=== PATIENT | female | born 1970 | race Caucasian/White ===

== ENCOUNTER 2018-02-08 21:41 | Observation (INO) | payer MEDICARE, SELFPAY ==
--- NOTE | 2018-02-08 22:38 | RAD ---
THREE VIEWS RIGHT ANKLE: 02/08/18 HISTORY: Trauma, fall from standing position with deformity to right ankle with associated right ankle pain. FINDINGS: There is a fracture involving the medial malleolus as well as the distal fibula. The distal fracture fragments including the talus are displaced laterally with respective to the distal tibia as well as fibula. There is a fracture involving the posterior malleolus. The distal fracture fragments are disp laced laterally by approximately 7 mm. The fracture involving the distal fibula does appear mildly co mminuted. There is subcutaneous soft tissue swelling about the ankle. IMPRESSION: 1. Trimalleolar fracture right ankle with dislocation at the tibiotalar joint secondary to the f ractures. 2. Subcutaneous soft tissue swelling. POS: GREG
[2018-02-08] MEDS ORDERED: diphenhydrAMINE 50 MG/ML VIAL ONE (22:41)
[2018-02-08 23:20] LABS: #Lymphocytes 0.8 thou/uL (1.20-3.40); #Monocytes 0.4 thou/uL (0.11-0.59); #Neutrophils 8.8 thou/uL (1.40-6.50); %Basophils 0.5 % (0.0-1.0); %Eosinophils 0.4 % (0.0-10.0); %Lymphocytes 8.2 % (21.0-51.0); %Monocytes 4.3 % (0.0-10.0); %Neutrophils 86.6 % (42.0-75.0); Hemoglobin 12.8 g/dL (12.0-16.0); Mean Corpuscular HGB CONC 33.4 g/dL (32.0-36.0); Mean Corpuscular Hemoglobin 30.1 pg (27.0-31.0); Mean Corpuscular Volume 90.2 fL (78.0-98.0); Mean Platelet Volume 7.7 fL (7.4-10.4); Platelet Count 173 thou/uL (130-400); Red Blood Cell (RBC) Count 4.26 mill/uL (4.20-5.40); White Blood Cell (WBC) Count 10.1 thou/uL (4.8-10.8)
[2018-02-08 23:41] LABS: ALT (SGPT) 18 U/L (8-55); AST (SGOT) 19 U/L (5-34); Albumin 4.4 g/dL (3.5-5.0); Alkaline Phosphatase 73 U/L (40-150); Anion Gap 13 mmol/L (10-20); BUN (Urea Nitrogen) 12 mg/dL (7.0-18.7); Bilirubin, Total 0.2 mg/dL (0.2-1.2); Calc. Creatinine Clearance 0 mL/min (70-130); Calcium 9.6 mg/dL (7.8-10.44); Carbon Dioxide 24 mmol/L (22-29); Chloride 106 mmol/L (98-107); Estimated GFR-MDRD 68; Glucose 135 mg/dL (70-105); Potassium 3.8 mmol/L (3.5-5.1); Protein, Total 7.4 g/dL (6.0-8.3); Sodium 139 mmol/L (136-145)
--- NOTE | 2018-02-08 23:54 | RAD ---
PORTABLE AP CHEST X-RAY 02/08/18 HISTORY: Preoperative evaluation. COMPARISON: 12/19/11. FINDINGS: The cardiac silhouette is magnified by projection but is at the upper limits of normal in size. Pulmo nary vasculature is within normal limits. There is accentuation of the bronchovascular markings due t o the shallow depth of inspiration and portable technique. There is mild atelectasis left lung base. No other interval change. IMPRESSION: No acute cardiopulmonary process. POS: GREG
[2018-02-09] MEDS ORDERED: Bisacodyl 10 MG SUPP PR PRN (00:50)
[2018-02-09] MEDS ORDERED: Dextrose 50% Abboject 50 ML SYRINGE SLOW IVP PRN (00:50)
[2018-02-09] MEDS ORDERED: Dextrose 5% in Water 1,000 ML IV PRN (00:50)
[2018-02-09] MEDS ORDERED: Polyethylene Glycol 3350 17 GM Packet PO PRN (00:50)
[2018-02-09 00:56] VITALS: BMI 30.1
[2018-02-09] MEDS: Acetaminophen 1,000 MG in Premix Bag 1 BAG IVPB SCH ×4 (01:41→20:51)
[2018-02-09] MEDS: Sodium Chloride 0.9% 1,000 ML IV SCH ×3 (01:41→18:26)
[2018-02-09 05:25] LABS: #Basophils 0.1 thou/uL (0.0-0.2); #Eosinphils 0.1 thou/uL (0.0-0.7); #Lymphocytes 1.9 thou/uL (1.20-3.40); #Monocytes 0.7 thou/uL (0.11-0.59); #Neutrophils 6.4 thou/uL (1.40-6.50); %Basophils 0.7 % (0.0-1.0); %Eosinophils 0.6 % (0.0-10.0); %Lymphocytes 20.8 % (21.0-51.0); %Monocytes 7.6 % (0.0-10.0); %Neutrophils 70.4 % (42.0-75.0); Hemoglobin 12.4 g/dL (12.0-16.0); Mean Corpuscular HGB CONC 33.6 g/dL (32.0-36.0); Mean Corpuscular Hemoglobin 30.3 pg (27.0-31.0); Mean Corpuscular Volume 90.5 fL (78.0-98.0); Mean Platelet Volume 7.4 fL (7.4-10.4); Platelet Count 182 thou/uL (130-400); RBC Distribution Width 11.9 % (11.5-14.5); Red Blood Cell (RBC) Count 4.08 mill/uL (4.20-5.40); White Blood Cell (WBC) Count 9.1 thou/uL (4.8-10.8)
[2018-02-09 05:52] LABS: Anion Gap 10 mmol/L (10-20); BUN (Urea Nitrogen) 12 mg/dL (7.0-18.7); Calc. Creatinine Clearance 123 mL/min (70-130); Calcium 9.3 mg/dL (7.8-10.44); Carbon Dioxide 28 mmol/L (22-29); Chloride 107 mmol/L (98-107); Estimated GFR-MDRD 74; Glucose 102 mg/dL (70-105); Phosphorus 3.2 mg/dL (2.3-4.7); Potassium 3.8 mmol/L (3.5-5.1); Sodium 141 mmol/L (136-145)
--- NOTE | 2018-02-09 06:36 | HP ---
DATE OF ADMISSION: 02/08/2018 ADMITTING PHYSICIAN: Dr. Vanessa Caldwell. CONSULTING PHYSICIAN: Dr. Hernandez, Orthopedics. HISTORY OF PRESENT ILLNESS: Ms. Pillai is a 47-year-old female with a history of Kaitlin's disease and movement disorder. She reports that she was attempting to get up out of bed to ambulate to the bathroom when her movement disorder caused her to lose her balance and fall to the ground. Her husba nd then was able to assist her to the restroom and sat her on the stool where then she again fell to the floor trying to get up, twisting her right ankle. She was subsequently transported to [facility] where a right bimalleolar ankle fracture was identified. She complains of no o ther pain. She reports only pain in her right ankle. PAST MEDICAL HISTORY: 1. St. Mary's disease. 2. High cholesterol. 3. Uterine cancer. PAST SURGICAL HISTORY: 1. Hysterectomy. 2. Hemorrhoid surgery. SOCIAL HISTORY: Tobacco; the patient is a former smoker, quit smoking 3 years ago. Alcohol, none. Drugs, none. MEDICATIONS: 1. Clonazepam 0.5 mg every bedtime. 2. Spironolactone 25 mg daily. 3. Sertraline 200 mg daily. 4. Bupropion 150 mg once daily. 5. Atorvastatin 10 mg daily. 6. Trazodone 150 mg daily. 7. Tylenol #4 times daily. 8. Multivitamin once daily. 9. Baclofen 10 mg 4 times daily. 10. Ditropan 10 mg b.i.d. 11. Phenergan 25 mg q.4h. p.r.n. ALLERGIES: No known drug allergies. LABORATORY DATA: CBC: WBC 10.1, RBC 4.26, hemoglobin 12.8, hematocrit 38.4, platelets 173. Mica Splitter ry: Sodium 139, potassium 3.8, chloride 106, carbon dioxide 24, BUN 12, creatinine 0.89, glucose 135 , calcium 9.6. DIAGNOSTIC IMAGING: Trimalleolar fracture of the right ankle with dislocation of the tibiotalar barbara nt. REVIEW OF SYSTEMS: CONSTITUTIONAL: The patient is denies fever, chills, recent weight loss or generalized malaise. HEENT: Denies otorrhea, rhinorrhea, sore throat or neck pain. CARDIOVASCULAR: Denies chest pain. Denies syncope. RESPIRATORY: Denies shortness of breath, cough or wheezing. GASTROINTESTINAL: Denies abdominal pain, nausea, vomiting, diarrhea or constipation. GENITOURINARY: Denies hematuria or dysuria. MUSCULOSKELETAL: Reports fall, reports right ankle pain, reports right ankle deformity. SKIN: Denies rash or skin changes. NEUROLOGIC: Reports past medical history of [facility]. Mary's disease and movement disorder. PSYCHIATRIC: Reports history of depression. HEME/LYMPH: Denies abnormal bleeding. PHYSICAL EXAMINATION: VITAL SIGNS: Blood pressure 131/89, pulse 93, respirations 18, temperature 98.2, O2 sat 95% on 2 lit ers O2. CONSTITUTIONAL: Well-nourished, well-developed female lying in bed in no acute distress, nontoxic ap pearing. HEENT: Atraumatic, normocephalic. Trachea midline. No posterior neck tenderness. CARDIOVASCULAR: Regular rate and rhythm. Heart sounds normal. PULMONARY/CHEST: Chest movements symmetrical, bilateral breath sounds clear. ABDOMEN: Soft, nontender, nondistended. Pelvis stable. EXTREMITIES: Right ankle with swelling and ecchymosis. Neurovascularly intact all extremities, 2+ p ulses intact all extremities. SKIN: Warm and dry, normal in color. BACK: Normal inspection and range of motion. NEUROLOGIC: GCS 15. Awake, alert and oriented x3. ASSESSMENT AND PLAN: 1. Status post ground level fall. 2. Right trimalleolar ankle fracture. 3. History of [facility]. Mary's disease. 4. Acute traumatic pain. PLAN: 1. Admit to surgical floor. 2. Consult to Dr. Hernandez who plans to take patient to the OR tomorrow. 3. N.p.o. after midnight, IV fluid. 4. IV analgesia. 5. Splint to be placed by ER physician. 6. Pepcid for gastritis prophylaxis. 7. SCDs for DVT prophylaxis. 8. PT, OT consult with orthopedic restrictions postoperatively. This patient will be reviewed with Dr. Caldwell at the conclusion of this dictation.
[2018-02-09] MEDS ORDERED: CEFAZOLIN/Water 2 GM/20 ML SYRINGE SLOW IVP SCH (08:00)
--- NOTE | 2018-02-09 08:17 | CON ---
DATE OF CONSULTATION: 02/09/2018 REQUESTING PHYSICIAN: Dr. Vanessa Caldwell HISTORY OF PRESENT ILLNESS: Ms. Pillai is examined in her [address] room with at [facility]. She is a 47-year-old lady with a history of Elliott's disease and with severe movement disord er. She reports that on 02/08/2018 while attempting to get out of bed to ambulate she lost her poonam ce and fell sustaining a twisting injury to the right lower extremity. Her assisted her up t o the bathroom and then she had a second fall. Upon transfer to [facility], x-rays were obtained adryan t showed a displaced fracture of the right ankle with bimalleolar fracture present. She reports a hi story of multiple falls. PAST MEDICAL HISTORY: Remarkable for Kaitlin's disease, history of uterine cancer, severe depress ion, high cholesterol. PAST SURGICAL HISTORY: Includes tubal ligation with subsequent hysterectomy secondary to uterine can cer, hemorrhoid surgery, as well as nasal fracture surgery. MEDICATIONS: Clonazepam, spironolactone, sertraline, bupropion, atorvastatin, trazodone, Tylenol #4, baclofen, Ditropan, Phenergan, multivitamin. ALLERGIES: None known. SOCIAL HISTORY: She is a prior smoker; however, quit a few years ago. She denies alcohol or drug us e. FAMILY HISTORY: Noncontributory. REVIEW OF SYSTEMS: Denies recent fevers, chills or sweats. Denies chest pain or shortness of breath . Denies numbness or tingling in the lower extremities. PHYSICAL EXAMINATION: VITAL SIGNS: The patient is found to have a temperature of 97.9, heart rate of 77, respiratory rate of 20, and blood pressure 148/79. GENERAL: The patient is examined in her hospital bed. 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 HEENT: Atraumatic, normocephalic. NECK: Supple and nontender. HEART: Regular rate and rhythm without murmur. LUNGS: Clear to auscultation bilaterally with excellent breath sounds. CHEST: Chest wall is nontender. ABDOMEN: Soft and nontender with normal bowel sounds. PELVIS: Stable to compression with no pain. EXTREMITIES: Remarkable for bilateral upper extremities that are atraumatic. A left lower extremity that is also atraumatic at the hip, knee and ankle. She is moving her ankle and toes normally. The right lower extremity is remarkable for a short leg splint that is in place. She is able to move he r toes and has intact subjective sensation over the dorsal and plantar surface of the foot. She has excellent capillary refill. The knee and hip are atraumatic. X-ray of right ankle from the emergency room is remarkable for a bimalleolar ankle fracture with a ve ry small posterior malleolar segment that would technically make this a trimalleolar fracture; howeve r, only the medial and lateral malleolar fractures are in need of stabilization. LABORATORY: White count of 10, hematocrit of 38.4, 173,000 platelets. ASSESSMENT: A 47-year-old lady with Elliott's disease, now status post ground level fall sustaini ng an ankle fracture. PLAN: At this time, the patient is admitted to Trauma Service. She is currently n.p.o. We will pro verona to the operating room for open reduction internal fixation late this morning or early afternoon. Postoperatively, the patient will require nonweightbearing instructions and physical therapy latonia edwards. Today we discussed risks and benefits of surgery. Risks include, but are not limited to bleedin g, infection, nerve injury, DVT, PE, ankle stiffness, loss of limb or life. The patient appears to u nderstand and does wish to proceed.
[2018-02-09] MEDS ORDERED: Famotidine/PF 20 mg/2ml Vial SLOW IVP SCH (09:00)
[2018-02-09] MEDS ORDERED: RIZATRIPTAN BENZOATE 10 MG PO PRN (09:45)
[2018-02-09] MEDS ORDERED: Rizatriptan Benzoate 10 MG MLT TAB PO PRN (09:54)
[2018-02-09] MEDS ORDERED: Morphine 4 MG/ML VIAL IV PRN (10:00)
--- NOTE | 2018-02-09 12:02 | PRG ---
DATE OF SERVICE: 02/09/2018 SUBJECTIVE: Ms. Pillai is a 47-year-old woman who sustained a trimalleolar right ankle fracture yeste rday from a fall. She is awake and alert this morning. She is slightly confused at baseline. She complains of right lower extremity pain. OBJECTIVE: VITAL SIGNS: Includes blood pressure 131/78, pulse 75, respiratory rate is 20, temperature is 98.4 d egrees Fahrenheit, oxygen saturation is 95% on room air. HEENT: Reveals normocephalic and atraumatic. Pupils equal, round and reactive to light and accommod ation. HEART: Reveals regular rate and rhythm. No murmurs or gallops auscultated. LUNGS: Clear to auscultation bilaterally. Breathing is regular and unlabored. ABDOMEN: Soft, nontender, nondistended. EXTREMITIES: Reveals 2+ radial and pedal pulses bilaterally. Right lower extremity is immobilized i n a splint. NEUROLOGIC: Reveals no focal deficits present. LABORATORY FINDINGS: Today includes a CBC with 9100 white blood cells, hemoglobin and hematocrit 12. 4 and 36.9 respectively. Platelet count is 182,000. Metabolic profile, sodium 141, potassium 3.8, c hloride is 107, bicarbonate is 28, BUN 12, creatinine 0.82, glucose is 102, magnesium 2.0, phosphorus is 3.2. IMPRESSION: 1. Status post ground level fall. 2. Closed right trimalleolar ankle fracture. PLAN: 1. Resume all prehospital medications. 2. The patient is stable to proceed with orthopedic surgery for repair of the ankle fracture.
[2018-02-09] MEDS ORDERED: HYDROmorphone 0.5 MG/0.5 ML SYRINGE ONE ×3 (12:51→16:16)
[2018-02-09] MEDS ORDERED: Midazolam HCl 2 mg/2 ml Vial ONE (13:42)
[2018-02-09] MEDS ORDERED: Ondansetron HCl/PF 4 MG/2 ML Vial ONE (13:47)
[2018-02-09] MEDS ORDERED: Lidocaine 1% PF 5 ML VIAL ONE (13:47)
[2018-02-09] MEDS ORDERED: Ketorolac Tromethamine 30 MG/ML VIAL ONE (13:47)
[2018-02-09] MEDS ORDERED: PROPOFOL 200 MG/20 ML VIAL ONE (13:47)
[2018-02-09] MEDS ORDERED: Fentanyl 100 MCG/2 ML VIAL ONE (14:17)
[2018-02-09] MEDS ORDERED: Bupivacaine PF 0.5% 30 ML VIAL ONE (14:50)
--- NOTE | 2018-02-09 15:25 | RAD ---
RADIOGRAPH RIGHT ANKLE THREE VIEWS: Date: 02-09-18 History: 47-year-old female status post acute traumatic ankle fracture. Comparison: 02-08-18 FINDINGS: Fluoroscopic spot images obtained with C-arm in the OR. The fracture displacements and joint subluxat ions have been reduced. The alignment is now nearly anatomic. There is a new long lateral metallic pl ate abutting the lateral aspect of the distal fibula from the distal diaphysis to the lateral malleol us, attached with multiple screws. There are two new screws embedded along the long axis of the media l malleolus. IMPRESSION: 1. Status post open reduction internal fixation of acute, traumatic, lateral malleolar fractures. 2. Status post screw fixation of medial malleolar fracture. POS: GREG
[2018-02-09] MEDS ORDERED: HYDROmorphone 2 MG/ML VIAL SLOW IVP PRN (16:06)
[2018-02-09] MEDS ORDERED: Ondansetron HCl/PF 4 MG/2 ML Vial IVP PRN (16:06)
[2018-02-09] MEDS ORDERED: Promethazine HCl 25 MG/ML VIAL IM PRN (16:06)
[2018-02-09] MEDS ORDERED: Promethazine HCl 25 MG/ML VIAL SLOW IVP PRN (16:06)
--- NOTE | 2018-02-09 16:16 | CT ---
CT BRAIN 02/09/18 HISTORY: Fall. Noncontrast enhanced CT images of the brain obtained. The brain is unremarkable. No evidence of intracranial masses, hemorrhages, strokes or contusions see n. IMPRESSION: Unremarkable CT brain. POS: GREG
[2018-02-09] MEDS ORDERED: Promethazine HCl 25 MG/ML VIAL ONE (16:48)
[2018-02-09] MEDS ORDERED: traZODone HCl 150 MG TAB PO SCH (21:00)
[2018-02-09] MEDS: CEFAZOLIN/Water 2 GM/20 ML SYRINGE SLOW IVP SCH (21:52)
[2018-02-09] MEDS: traZODone HCl 150 MG TAB PO SCH (21:52)
[2018-02-09] MEDS: Famotidine 20 MG TAB PO SCH (21:52)
[2018-02-10] MEDS: Acetaminophen 1,000 MG in Premix Bag 1 BAG IVPB SCH (01:07)
[2018-02-10] MEDS: Sodium Chloride 0.9% 1,000 ML IV SCH ×3 (01:07→23:28)
[2018-02-10] MEDS: CEFAZOLIN/Water 2 GM/20 ML SYRINGE SLOW IVP SCH ×2 (06:05→14:19)
[2018-02-10] MEDS ORDERED: Atorvastatin Calcium 10 MG TAB PO SCH (09:00)
[2018-02-10] MEDS ORDERED: clonazePAM 0.5 MG TAB PO SCH (09:00)
[2018-02-10] MEDS: Famotidine 20 MG TAB PO SCH ×2 (10:21→21:39)
[2018-02-10] MEDS: Bupropion 150 MG XL TAB PO SCH (10:22)
[2018-02-10] MEDS: Atorvastatin Calcium 10 MG TAB PO SCH (10:22)
[2018-02-10] MEDS: clonazePAM 0.5 MG TAB PO SCH (10:23)
[2018-02-10] MEDS ORDERED: traMADol HCl 50 MG TAB PO PRN (11:49)
[2018-02-10] MEDS: Baclofen 10 MG TAB PO PRN (12:10)
[2018-02-10] MEDS: Acetaminophen 500 MG TAB PO SCH ×2 (12:11→17:36)
[2018-02-10] MEDS: Aspirin 81 mg Enteric Coated Tablet PO SCH ×2 (12:12→21:39)
--- NOTE | 2018-02-10 16:01 | OP ---
DATE OF PROCEDURE: 02/10/2018 PREOPERATIVE DIAGNOSIS: Right trimalleolar ankle fracture. POSTOPERATIVE DIAGNOSIS: Right trimalleolar ankle fracture. SURGICAL PROCEDURE: Open reduction and internal fixation of right medial and lateral malleoli. ANESTHESIA: General. SURGEON: Dr. Wheatley. EVENTS MANAGER: Clayt[place]. TOURNIQUET TIME: 59 minutes at 300 mmHg. BLOOD LOSS: 5 mL. IMPLANTS: Synthes 2.7 mm variable angle LCP distal lateral fibular plate 4-hole with the addition of small fragment screws. COMPLICATIONS: None. DRAINS: None. SPECIMEN: None. OUTCOME: Anatomic alignment. INDICATIONS: The patient is a 47-year-old lady status post trip and fall sustaining twisting injury to right ankle with trimalleolar ankle fracture. After discussion with patient including risks and b enefits, we decided to proceed with open reduction and internal fixation. Informed consent has been obtained. I believe all questions answered. DESCRIPTION OF PROCEDURE: After the patient was brought to the operating room and a timeout performe d followed by induction of general anesthesia. Next, patient was positioned supine on the OR table a nd a sterile prep and drape was performed of the right lower extremity. The limb was then exsanguina xiomara with Esmarch bandage, tourniquet inflated to 300 mmHg. First, a lateral incision was made follow ing the distal fibula after skin was sharply incised, dissection was carried down bluntly exposing th e fracture. This fracture had a small butterfly fragment anteriorly and an oblique fracture heading posteriorly. The fracture was reduced and held in place with bone tenaculum. Next, a 4-hole 2.7 mm variable angle LCP lateral distal fibular plate was applied to the lateral cortex of the fibula. Thi s was held in place with 2.7 mm cortical screws proximally and locking screws distally. AP, lateral and mortise x-rays were then obtained that showed anatomic alignment with reduction of the posterior malleolus. Next, a small incision was made centered over the medial malleolus after skin was sharply incised, dissection was carried down bluntly to expose the fracture and protect the saphenous vein. Fracture was freed of periosteum that was interposed in the fracture site and the fracture reduced, held in place with bone tenaculum and then two 4.0 mm cortical screws were passed from the tip of the medial malleolus obliquely across the fracture in the distal tibial metaphysis. At the completion o f this, final C-arm images were obtained and then the 2 wounds closed. Bulb syringe was used for irr igation followed by 0 Vicryl deep, followed by 2-0 Vicryl and umer for the skin. Xeroform gauze, Webril, and fiberglass splint was applied to the ankle and then tourniquet was let down and the patie nt transferred to recovery room in stable condition. There were no complications. She tolerated the procedure well.
--- NOTE | 2018-02-10 17:08 | PRG ---
DATE OF SERVICE: 02/10/2018 ATTENDING PHYSICIAN: Dr. Davian Ragland. SUBJECTIVE: Ms. Pillai is a 47-year-old female who sustained a right trimalleolar fracture 2 days ago resulting from a ground level fall. She was taken to the operating room 1 day ago for fixation of h er fracture. She had episode of urinary retention this morning, necessitating an I and O catheter. OBJECTIVE: VITAL SIGNS: Temperature 98.2, pulse 80, respirations 16, O2 saturation 97%, blood pressure 145/50. CONSTITUTIONAL: Well-nourished, well-developed female lying in bed in no acute distress. HEENT: Atraumatic, normocephalic. PULMONARY: Bilateral breath sounds clear. No respiratory distress. HEART: Regular rate and rhythm. Heart sounds normal. ABDOMEN: Soft, nontender, nondistended. MUSCULOSKELETAL: Moves all extremities. Cap refill brisk in all extremities, 2+ pulses all extremit ies. NEUROLOGIC: GCS 15. Awake, alert and oriented x3. Involuntary movements noted. ASSESSMENT: 1. Status post ground level fall. 2. Right trimalleolar ankle fracture status post open reduction and internal fixation. 3. Acute traumatic pain, improving. PLAN: 1. Add baclofen for muscle relaxer as patient also takes this at home as prehospital medication. 2. Continue to work with physical and occupational therapy. 3. Case management consult for discharge planning. Rehab referral sent. 4. Encourage incentive spirometry and pulmonary toilet. 5. Aspirin 81 mg b.i.d. for DVT prophylaxis. 6. Pepcid for gastritis prophylaxis. The patient was reviewed with Dr. Ragland who agrees with plan.
[2018-02-10] MEDS: traZODone HCl 150 MG TAB PO SCH (21:40)
[2018-02-11] MEDS: Acetaminophen 500 MG TAB PO SCH ×5 (01:56→23:56)
[2018-02-11] MEDS: Sodium Chloride 0.9% 1,000 ML IV SCH (04:23)
[2018-02-11] MEDS: traMADol HCl 50 MG TAB PO PRN ×2 (08:48→14:25)
[2018-02-11] MEDS: Atorvastatin Calcium 10 MG TAB PO SCH (08:48)
[2018-02-11] MEDS: Bupropion 150 MG XL TAB PO SCH (08:48)
[2018-02-11] MEDS: Aspirin 81 mg Enteric Coated Tablet PO SCH ×2 (08:48→20:23)
[2018-02-11] MEDS: Famotidine 20 MG TAB PO SCH ×2 (08:48→20:23)
[2018-02-11] MEDS: clonazePAM 0.5 MG TAB PO SCH (08:48)
[2018-02-11] MEDS: Ibuprofen 800 MG TAB PO PRN ×2 (11:23→23:56)
[2018-02-11] MEDS: traZODone HCl 150 MG TAB PO SCH (20:23)
--- NOTE | 2018-02-11 20:50 | PRG ---
DATE OF SERVICE: 02/11/2018 SUBJECTIVE: The patient is status post ground level fall in which she sustained a right trimalleolar fracture. The patient has undergone open reduction and internal fixation of the same. She tolerate d this procedure well overnight. She did well this morning. She is tolerating a diet. She reports that her pain is relatively controlled. By nursing report, Orthopedics has already adjusted her pain medicines. OBJECTIVE: VITAL SIGNS: Temperature is 98.4, heart rate 92, blood pressure 138/70, respirations 16, oxygen satu ration 94% on room air. GENERAL: The patient is resting comfortably in bed. She is awake, alert, oriented x3. Sadia coma scale is 15. HEENT: Unremarkable. LUNGS: Clear to auscultation bilaterally with good inspiratory and expiratory effort. HEART: Regular rate and rhythm. ABDOMEN: Soft, flat, nontender with active bowel sounds. EXTREMITIES: Neurovascularly intact x4 in right lower extremities. A dressing is clean, dry, and in tact. His splint is also clean, dry, and intact. LABORATORY DATA: There are no labs or radiographs to review this morning. ASSESSMENT: 1. Status post ground level fall. 2. Status post open reduction and internal fixation of right trimalleolar fracture. PLAN: Will be to continue supportive care, physical and occupational therapy and await final [facility] decision. The patient will be evaluated by rehabilitation, likely today. The evaluation and exam ination were done with Dr. Ragland during rounds this morning.
[2018-02-12] MEDS: Acetaminophen 500 MG TAB PO SCH ×4 (06:21→22:57)
[2018-02-12] MEDS: Bupropion 150 MG XL TAB PO SCH (09:06)
[2018-02-12] MEDS: Atorvastatin Calcium 10 MG TAB PO SCH (09:07)
[2018-02-12] MEDS: clonazePAM 0.5 MG TAB PO SCH (09:07)
[2018-02-12] MEDS: Famotidine 20 MG TAB PO SCH ×2 (09:07→21:15)
[2018-02-12] MEDS: Aspirin 81 mg Enteric Coated Tablet PO SCH ×2 (09:07→21:14)
[2018-02-12] MEDS: traMADol HCl 50 MG TAB PO PRN (16:57)
[2018-02-12] MEDS: Ibuprofen 800 MG TAB PO PRN (21:14)
[2018-02-12] MEDS: traZODone HCl 150 MG TAB PO SCH (21:14)
[2018-02-13] MEDS: traMADol HCl 50 MG TAB PO PRN ×6 (00:25→21:45)
--- NOTE | 2018-02-13 01:42 | PRG ---
DATE OF SERVICE: 02/13/2018 SUBJECTIVE: Patient is status post ground-level fall, in which she sustained a right trimalleolar fr acture which she has undergone open reduction and internal fixation of the same. Patient is currentl y awaiting placement to rehab. Overnight, she had no issues. This morning, she is tolerating a diet and her pain is controlled. PHYSICAL EXAMINATION: VITAL SIGNS: Temperature is 97.4, heart rate 64, blood pressure 142/90, respirations 15, oxygen satu ration 93% on room air. GENERAL: Patient is resting comfortably beside her bed in a chair. She is awake, alert, and oriente d x3. LUNGS: Clear to auscultation with good inspiratory and expiratory effort. HEART: Regular rate and rhythm. ABDOMEN: Soft, flat, nontender with active bowel sounds. EXTREMITIES: Neurovascularly intact with a clean, dry, and intact. Splint on her right lower extrem ity. LABORATORY DATA: There are no labs or radiographs to review this morning. ASSESSMENT AND PLAN: 1. Status post ground-level fall. 2. Status post open reduction and internal fixation of a right trimalleolar fracture. PLAN: Plan will be to continue supportive care, physical and occupational therapy, pain control, and await rehabilitation decision. The evaluation and examination were discussed with Dr. Ellyn mahmood.
[2018-02-13] MEDS: Baclofen 10 MG TAB PO PRN ×3 (02:23→16:33)
[2018-02-13] MEDS: Acetaminophen 500 MG TAB PO SCH ×3 (04:29→17:33)
[2018-02-13] MEDS: clonazePAM 0.5 MG TAB PO SCH (08:49)
[2018-02-13] MEDS: Famotidine 20 MG TAB PO SCH ×2 (08:49→21:44)
[2018-02-13] MEDS: Bupropion 150 MG XL TAB PO SCH (08:49)
[2018-02-13] MEDS: Ibuprofen 800 MG TAB PO PRN ×2 (08:49→16:32)
[2018-02-13] MEDS: Aspirin 81 mg Enteric Coated Tablet PO SCH ×2 (08:49→21:45)
[2018-02-13] MEDS: Atorvastatin Calcium 10 MG TAB PO SCH (08:49)
[2018-02-13] MEDS: CODEINE PO PRN (16:29)
[2018-02-13] MEDS: ACETAMINOPHEN PO PRN (16:29)
[2018-02-13] MEDS ORDERED: clonazePAM 1 MG TAB PO SCH (21:00)
[2018-02-13] MEDS: traZODone HCl 150 MG TAB PO SCH (21:44)
[2018-02-14] MEDS: Ibuprofen 800 MG TAB PO PRN (00:51)
[2018-02-14] MEDS: Acetaminophen 500 MG TAB PO SCH ×4 (00:52→15:28)
--- NOTE | 2018-02-14 02:38 | PRG ---
DATE OF SERVICE: 02/14/2018 SUBJECTIVE: The patient is currently on the surgical floor. She is admitted for a ground level fall in which she sustained a right trimalleolar fracture, which she has undergone ORIF. The patient is currently just waiting for rehab placement. Overnight, she had no issues. This morning, her biggest concern is she would like all of her home medications resumed and we have agreed to this. PHYSICAL EXAMINATION: VITAL SIGNS: Temperature is 98.4, heart rate 85, blood pressure 144/85, respirations 16, oxygen satu ration 96% on room air. GENERAL: The patient is resting comfortably in bed. She is awake, alert, oriented and appropriate. HEENT: Unremarkable. LUNGS: Clear to auscultation with good inspiratory and expiratory effort. HEART: Regular rate and rhythm. ABDOMEN: Soft, flat, nontender with active bowel sounds. EXTREMITIES: Neurovascularly intact. Her right lower extremity splint is clean, dry, and intact. LABORATORY DATA: There are no labs or radiographs to review this morning. ASSESSMENT AND PLAN: 1. Status post ground level fall. 2. Status post open reduction and internal fixation of right ankle fracture. Plan will be to continue supportive care, physical and occupational therapy and await final placement decision hopefully tomorrow. The patient will be able to move to inpatient rehabilitation. Otherwi se, we will start discussing discharge to home options. The evaluation and examination were done wit kimberly Ragland during rounds this morning.
[2018-02-14] MEDS: clonazePAM 0.5 MG TAB PO SCH (08:25)
[2018-02-14] MEDS: Famotidine 20 MG TAB PO SCH (08:26)
[2018-02-14] MEDS: Aspirin 81 mg Enteric Coated Tablet PO SCH (08:26)
[2018-02-14] MEDS: Baclofen 10 MG TAB PO PRN (08:26)
[2018-02-14] MEDS: Atorvastatin Calcium 10 MG TAB PO SCH (08:26)
[2018-02-14] MEDS: Bupropion 150 MG XL TAB PO SCH (08:26)
[2018-02-14] MEDS: CODEINE PO PRN (08:52)
[2018-02-14] MEDS: ACETAMINOPHEN PO PRN (08:52)
[2018-02-14] MEDS ORDERED: Non-Formulary Item 1 EACH (Acetaminophen With Codeine [Tylenol With Codeine #4] 1 TABLET) PO PRN (13:44)
[2018-02-14] MEDS ORDERED: diphenhydrAMINE 12.5 MG/5 ML UDCUP PO PRN (13:45)
[2018-02-14] MEDS ORDERED: Promethazine 25 MG TAB PO SCH ×2 (14:15→17:00)
[2018-02-14 16:22] VITALS: BP 139/77; TEMP 98.3
[2018-02-15] MEDS ORDERED: Spironolactone 25 MG TAB PO SCH (09:00)
--- NOTE | 2018-02-17 15:05 | EKG ---
Test Reason : Blood Pressure : / mmHG Vent. Rate : 085 BPM Atrial Rate : 085 BPM P-R Int : 156 ms QRS Dur : 096 ms QT Int : 372 ms P-R-T Axes : 040 -07 020 degrees QTc Int : 442 ms Normal sinus rhythm Left atrial enlargement Incomplete right bundle branch block Nonspecific T wave abnormality Abnormal ECG Confirmed by KIRSTEN GASTELUM, MIGUEL Bell ([id number]), editor in chief newspaper LUCERO AGUILERA ([id number]) on 02/17/2018 3:05:34 PM Referred By: Confirmed By:MIGUEL CURTIS MD
== END 2018-02-14 17:50 ==
LOC: ERS 21:41 → T4-A 02-09 00:34 → SJJU 02-09 17:14 → SURG B 02-11 18:04
PROVIDERS: ADMIT Surgery; ATTEND Surgery
PROC: 0QSJ04Z Reposition Right Fibula with Internal Fixation Device, Open Approach (ICD-10-PCS; principal; 2018-02-10)
PROC: 0QSG04Z Reposition Right Tibia with Internal Fixation Device, Open Approach (ICD-10-PCS; 2018-02-10)
PROC: 0QSG04Z Reposition Right Tibia with Internal Fixation Device, Open Approach (ICD-10-PCS; 2018-02-10)
DX: S82.851A Displaced trimalleolar fracture of right lower leg, initial encounter for closed fracture (principal); G10 Huntington's disease; G89.21 Chronic pain due to trauma; E78.00 Pure hypercholesterolemia, unspecified; F32.9 Major depressive disorder, single episode, unspecified; Z85.42 Personal history of malignant neoplasm of other parts of uterus; Z87.891 Personal history of nicotine dependence; Z79.899 Other long term (current) drug therapy; W01.0XXA Fall on same level from slipping, tripping and stumbling without subsequent striking against object, initial encounter
CPT/HCPCS: 27823; 29515; 51701; 70450; 71045; 73610 ×2; 76001; 80048; 80053; 82962; 83735; 84100; 85025 ×2; 93005; 96361 ×2; 96372; 96374; 96375; 96376 ×3; 97116 ×3; 97139 ×6; 97530 ×2; 97535; 99285; C1713 ×3; G0378 ×2; G8978; G8979; G8987; G8988; 36415; 36416; G0390; J0131; J1170; J1200; J1885; J2001; J2250; J2270; J2405; J2550; J2704; J3010; S0020; S0028